=== PATIENT | male | born 1980 | race American Indian/Alaskan Native ===

== ENCOUNTER 2017-04-16 10:55 | Emergency (ER) | payer OTHER ==
[2017-04-16] MEDS ORDERED: ZEMURON IV ONE ×2 (11:25→11:42)
[2017-04-16] MEDS ORDERED: QUELICIN ONE (11:25)
[2017-04-16] MEDS ORDERED: AMIDATE IV ONE (11:25)
[2017-04-16] MEDS ORDERED: XYLOCAINE CARDIAC IV ONE (11:25)
[2017-04-16 11:33] LABS: Basophils % (Auto) 0.4 % (0.0-1.8); Eosinophils % (Auto) 0.4 % (0.0-4.3); Hematocrit 40.6 % (35.5-45.6); Hemoglobin 13.1 gm/dl (11.8-15.2); Mean Corpuscular HGB Conc 32 % (32-34); Mean Corpuscular Volume 80 fl (84-94); Platelet Count 312 K/mm3 (140-440); Red Blood Count 5.09 M/mm3 (3.65-5.03); Red Cell Distribution Width 14.2 % (13.2-15.2); White Blood Count 13.7 K/mm3 (4.5-11.0)
[2017-04-16 11:35] LABS: Mean Corpuscular Hemoglobin 26 pg (28-32)
[2017-04-16] MEDS ORDERED: BOOSTRIX IM ONE (11:35)
[2017-04-16 11:39] LABS: Urine Drugs of Abuse Note Disclamer
[2017-04-16] MEDS ORDERED: ARTIFICIAL TEARS OPHTH OINT OU PRN (11:44)
[2017-04-16] MEDS ORDERED: VASELINE LIP THERAPY TP PRN (11:44)
[2017-04-16 11:53] LABS: Alanine Aminotransferase 25 units/L (7-56); Albumin 3.6 g/dL (3.9-5); Albumin/Globulin Ratio 0.9 %; Alkaline Phosphatase 53 units/L (35-129); Anion Gap 19 mmol/L; BUN/Creatinine Ratio 9.23; Blood Urea Nitrogen 12 mg/dL (9-20); Calcium 8.7 mg/dL (8.4-10.2); Carbon Dioxide 23 mmol/L (22-30); Chloride 98.4 mmol/L (98-107); Glucose 126 mg/dL (75-100); Potassium 3.9 mmol/L (3.6-5.0); Sodium 136 mmol/L (137-145); Total Protein 7.7 g/dL (6.3-8.2)
[2017-04-16 11:55] LABS: Bilirubin,Urine NEG (Negative); Blood,Urine NEG (Negative); Granular Casts,Urine 1 /LPF; Ketones,Urine NEG (Negative); Leukocyte Esterase,Urine NEG (Negative); Mucus,Urine FEW /HPF; Nitrite,Urine NEG (Negative); Urobilinogen,Urine < 2.0 mg/dL (<2.0)
[2017-04-16] MEDS ORDERED: NACL 0.9% 1000 ML 1,000 ML IV ONE (11:59)
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
[2017-04-16] MEDS ORDERED: MIDAZOLAM 100 MG in NACL 0.9% 80 ML IV SCH (12:00)
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
--- NOTE | 2017-04-16 12:18 | XRay Report ---
AP CHEST :04/16/17 11:57 CLINICAL: Post intubation. COMPARISON:None. FINDINGS: The endotracheal tube is in good position. Normal heart and pulmonary vessels. The lungs are clear. No pneumothorax. Bones and soft tissues are normal. No fracture. IMPRESSION: Satisfactory position of the endotracheal tube.No acute cardiopulmonary process.
[2017-04-16 12:33] LABS: Creatine Kinase MB 5.9 ng/mL (0.0-4.0)
[2017-04-16 12:34] LABS: Creatine Kinase 336 units/L (55-170)
[2017-04-16] MEDS ORDERED: OSMITROL 20% IV ONE (13:00)
[2017-04-16] MEDS ORDERED: fentaNYL DRIP Premix 2,000 MCG/100 ML BAG IV SCH (13:00)
[2017-04-16 13:17] LABS: ISTAT Base Excess 3; ISTAT HCO3 28.6; ISTAT PCO2 50.2 (35-45); ISTAT PH 7.363 (7.35-7.45); ISTAT PO2 157 (80-105); ISTAT SO2 99; ISTAT TCO2 30
[2017-04-16 14:22] VITALS: BP 175/96
== END 2017-04-16 14:22 | disposition other institution (70) ==
LOC: ED 10:55
DX: S06.1X9A Traumatic cerebral edema with loss of consciousness of unspecified duration, initial encounter (principal); Y04.0XXA Assault by unarmed brawl or fight, initial encounter; Y93.89 Activity, other specified; Y92.89 Other specified places as the place of occurrence of the external cause; Y99.8 Other external cause status
CPT/HCPCS: 31500; 36415; 70450; 70486; 71010; 72125; 80053; 80307; 81001; 82140; 82550; 82553; 82803; 83735; 84443; 84484; 85025; 87070; 87205; 90471; 90715; 93005; 93010; 96365; 96366; 96368; 96375; 99285; G0480; J0330; J2001; J2150; J2250; J3010; J7030; 80320; 94002